=== PATIENT | female | born 1955 | race Caucasian/White ===

== ENCOUNTER 2022-07-04 14:27 | Emergency (ER) | payer MEDICARE, OTHER ==
[2022-07-04] MEDS ORDERED: Ondansetron 4 MG/2 ML SDV IVPUSH ONE (15:00)
[2022-07-04] MEDS ORDERED: Sodium Chloride 0.9% 10 ML Syringe FLUSH PRN (15:00)
[2022-07-04] MEDS ORDERED: Sodium Chloride 0.9% 1,000 ML IV SCH (15:00)
[2022-07-04] MEDS ORDERED: Metoprolol Tartrate 25 MG Tab PO ONE (16:50)
[2022-07-04] MEDS ORDERED: Heparin Sodium 5,000 Units/ML Vial IVPUSH ONE (16:51)
[2022-07-04] MEDS ORDERED: Heparin Sodium/D5W 25,000 UNITS/500 ML BAG IV SCH (17:00)
[2022-07-04 18:05] LABS: CORONAVIRUS COVID-19 NAA POSITIVE (NEGATIVE)
[2022-07-04] MEDS ORDERED: Lactated Ringers 1,000 ML IV SCH (18:30)
== END 2022-07-04 19:00 | disposition home or self-care (01) ==
LOC: JD.ED 14:27
DX: U07.1 COVID-19 (principal); I21.4 Non-ST elevation (NSTEMI) myocardial infarction; Z88.1 Allergy status to other antibiotic agents; Z88.2 Allergy status to sulfonamides; Z87.891 Personal history of nicotine dependence
CPT/HCPCS: 0241U; 36415; 71045; 71045-26; 80053; 81001; 83735; 84484; 85025; 93005; 93010; 96361; 96365; 96366; 96375; 96376; 99285; 99285-25; J1644; J2405; J3490; J7030